=== PATIENT | female | born 1945 | race American Indian/Alaskan Native ===

== ENCOUNTER 2016-11-27 09:35 | Emergency (ER) | payer MEDICARE, OTHER ==
[2016-11-27 09:44] VITALS: BMI 29.2
[2016-11-27 09:47] VITALS: RESP 18; TEMP 98.3
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
--- NOTE | 2016-11-27 11:05 | RAD ---
PROCEDURE: Left Hip X-ray Radiographs. HISTORY: r/o fx COMPARISON: None. FINDINGS: BONES: No acute fracture. JOINTS: Right hip arthroplasty. There is dissolution/collapse of the left femoral head. This may be the result of chronic avascular necrosis or old trauma. 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 SOFT TISSUES: Normal. OTHER FINDINGS: None. 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 Possible old trauma. Right hip arthroplasty.
[2016-11-27 11:20] VITALS: O2SAT 97
--- NOTE | 2016-11-27 11:56 | CT ---
PROCEDURE: CT left hip HISTORY: r/o fx (follow up to x-ray today) COMPARISON: Not available TECHNIQUE: 2.5 mm contiguous axial sections were acquired through the left hip. Sagittal and coronal images were reformatted from the axial scan. FINDINGS: There is marked collapse of the left femoral head. The normal contour is absent. There is a vague lucency traversing the femoral neck, somewhat jagged, seen on series 2, image 26. This may be artifactual or may represent a subtle impaction fracture. Medullary bone proximal to this line is somewhat increased attenuation suggesting possible impaction. There is no angela cortical disruption. There is no other evidence of fracture. There is protrusio acetabula. There is no pelvic fracture appreciated. There is no soft tissue hematoma. There is no evidence of joint effusion. Soft tissue structures of the pelvis are unremarkable. The patient is status post right hip arthroplasty. There is beam hardening artifact arising from the right hip prosthesis. 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 Question of the lucency traversing the femoral neck, possibly reflecting nondisplaced impaction fracture. However, this is only identified in 1 of the 3 planes of examination. If clinical symptoms of fracture persist consider evaluation with magnetic resonance imaging. Protrusio acetabula I. no other significant abnormality.
[2016-11-27 12:40] VITALS: BP 141/65; PULSE 73
== END 2016-11-27 13:02 | disposition home or self-care (01) ==
LOC: MERGE 09:35 → ED 09:35
DX: M25.552 Pain in left hip (principal)